=== PATIENT | male | born 1950 | race Caucasian/White ===

== ENCOUNTER 2016-07-27 08:09 | Emergency (ER) | payer OTHER ==
[~2016-07-27] VITALS: Ht 170.2 cm; Wt 90.0 kg
[2016-07-27 08:13] VITALS: BP 157/80; PULSE 111; RESP 16; TEMP 98.3; O2SAT 96
[2016-07-27] MEDS ORDERED: LIPI40TA PO (08:31)
[2016-07-27] MEDS ORDERED: METF1000 PO (08:31)
[2016-07-27] MEDS ORDERED: MELO7.5T4 PO (08:31)
--- NOTE | 2016-07-27 08:34 | PD ---
HPI Chief Complaint: Pain: Acute or Chronic Time Seen by Provider: 08:19 Travel History International Travel<30 days: No Contact w/Intl Traveler<30days: No Traveled to known affect area: No History of Present Illness HPI 65-year-old man who presents to the emergency department complaining of left hip pain. First dose several days ago. He started to experience popping and clicking. [place] He started having more catching in the hip and progressive worsening pain. He's never really had trouble with the hip before. States the pain is worse when he bends over or rises from a seated position. It is a little bit improved with standing. Denies any pain anywhere else. There is no radiation of the pain outside of the hip. He localizes pain to the lateral hip. History Past Medical History Narrative Medical Diabetes Hyperlipidemia Tetanus Vaccination: Unknown Social History Alcohol Use: Yes (occ) Tobacco Use: No Allergies-Medications (Allergen,Severity, Reaction): Coded Allergies: No Known Allergies (Unverified , 07/27/16) Reported Meds & Prescriptions Reported Meds & Active Scripts Active Reported Meloxicam 7.5 Mg Tab 7.5 Mg PO DAILY Metformin (Metformin HCl) 1,000 Mg Tab 1,000 Mg PO BIDPC With meals Lipitor (Atorvastatin Calcium) 40 Mg Tab 40 Mg PO HS Review of Systems Except as stated in HPI: all other systems reviewed are Neg Physical Exam Narrative GENERAL: Well-appearing 65-year-old man, no acute distress. SKIN: Warm and dry. CARDIOVASCULAR: Warm and well perfused. RESPIRATORY: Normal rate and effort. MUSCULOSKELETAL: Focused examination of the left hip reveals grossly normal appearance. There is no pain with passive internal or external rotation of the hip. With passive flexion of the hip he gets some pain and pinching in the hip. Is worse with active range of motion of the hip. There is no limitation in range of motion. Distally knee exam is unremarkable. NEUROLOGICAL: Awake and alert. No gross deficits. Data Data Last Documented VS Vital Signs Date Time Temp Pulse Resp B/P Pulse Ox O2 Delivery O2 Flow Rate FiO2 07/27/16 08:13 98.3 111 16 157/80 96 Orders Hip, Uni(Ap&Lat) W Ap Pelvis (07/27/16 ) MDM Medical Decision Making Medical Screen Exam Complete: Yes Emergency Medical Condition: Yes Interpretation(s) Left hip x-ray: Mild osteoarthritis. Differential Diagnosis Avascular necrosis, osteoarthritis, foreign body, other Narrative Course Medical decision making INITIAL: 65-year-old man who presents to the emergency department with left hip pain. Symptoms seem to be intrinsic to the hip itself although this is not clear. He has an appointment with Dr. Levin next week. We'll check x-ray, rule out avascular necrosis, pathologic fracture. Patient is on meloxicam. Recommend outpatient follow-up. Diagnosis Primary Impression: Left hip pain Additional Instructions: Continue meloxicam as prescribed. Use Lortab in addition as needed for severe pain. Continue normal activities as tolerated. Follow-up with Dr. Levin as planned. Return to the emergency department for any new or worsening symptoms. Med/Other Pt SpecificInfo: Prescription(s) given Scripts Hydrocodone-Acetaminophen (Lortab)5-325 Mg Tab1-2 Tab PO Q6H PRN (PAIN) #20 TAB Prov:Ronnie Soler MD 07/27/16 Disposition: 01 DISCHARGE HOME Condition: Stable Ronnie Soler MD Jul 27, 2016 08:34
--- NOTE | 2016-07-27 09:18 | RADHPO ---
EXAM DATE/TIME: 07/27/2016 08:51 [facility] COMPARISON: No previous studies available for comparison. INDICATIONS : Left hip catching, decreased range of motion, clicking. MEDICAL HISTORY : Hypercholesterolemia. Diabetic. SURGICAL HISTORY : Bilateral shoulders. ENCOUNTER: Initial ACUITY: 3 days PAIN SCORE: 7/10 LOCATION: Left hip FINDINGS: There is mild osteoarthritis of both hips without fracture or dislocation. Normal bone density. CONCLUSION: Mild osteoarthritis. Yony Schultz MD on July 27, 2016 at 9:16 Board Certified Radiologist. This report was verified electronically.
[2016-07-27] MEDS ORDERED: HYDR-3533 PO ×2 (09:31→09:32)
== END 2016-07-27 09:43 | disposition home or self-care (01) ==
LOC: PHED 08:09
DX: M25.552 Pain in left hip (principal); E11.9 Type 2 diabetes mellitus without complications; E78.5 Hyperlipidemia, unspecified
CPT/HCPCS: 73502; 99283

== ENCOUNTER 2016-07-30 12:49 | Emergency (ER) | payer OTHER ==
[~2016-07-30] VITALS: Ht 170.2 cm; Wt 89.3 kg
[~2016-07-30 12:49] MED LIST: HYDR-3533 PO; LIPI40TA PO; MELO7.5T4 PO; METF1000 PO
[2016-07-30 13:05] VITALS: BP 143/76; PULSE 98; RESP 16; TEMP 98.1; O2SAT 96
--- NOTE | 2016-07-30 13:45 | PD ---
HPI Chief Complaint: Pain: Acute or Chronic Time Seen by Provider: 13:44 Travel History International Travel<30 days: No Contact w/Intl Traveler<30days: No Traveled to known affect area: No History of Present Illness HPI 55-year-old male presents to the ED for evaluation one-week history of left hip pain. Patient can recall no acute injury or overuse. He states that the pain is "hitching" and intermittent. He denies numbness, tingling, weakness, limitations to range of motion of the hip. He was seen on 07/27. X-ray revealed mild osteoarthritis. He endorses compliance with the medications prescribed at the time with no improvement of symptoms. He has follow-up with Dr. Levin this week. [facility] Past Medical History Hx Anticoagulant Therapy: No High Cholesterol: Yes Diabetes: Yes (Type 2 ) Patient Takes Glucophage: Yes Diminished Hearing: No Respiratory: No Influenza Vaccination: No Social History Alcohol Use: Yes (occ) Tobacco Use: No (quit years ago) Substance Use: No Allergies-Medications (Allergen,Severity, Reaction): Coded Allergies: No Known Allergies (Unverified , 07/27/16) Reported Meds & Prescriptions Reported Meds & Active Scripts Active Flexeril (Cyclobenzaprine HCl) 10 Mg Tab 10 Mg PO TID Lortab (Hydrocodone-Acetaminophen) 5-325 Mg Tab 1-2 Tab PO Q6H PRN Reported Meloxicam 7.5 Mg Tab 7.5 Mg PO DAILY Metformin (Metformin HCl) 1,000 Mg Tab 1,000 Mg PO BIDPC With meals Lipitor (Atorvastatin Calcium) 40 Mg Tab 40 Mg PO HS Review of Systems Except as stated in HPI: all other systems reviewed are Neg Physical Exam Narrative GENERAL: Well-nourished, well-developed white male in no acute distress.. SKIN: Focused skin assessment warm/dry. HEAD: Normocephalic. EYES: No scleral icterus. No injection or drainage. NECK: Supple, trachea midline. No JVD or lymphadenopathy. CARDIOVASCULAR: Regular rate and rhythm without murmurs, gallops, or rubs. RESPIRATORY: Breath sounds equal bilaterally. No accessory muscle use. GASTROINTESTINAL: Abdomen soft, non-tender, nondistended. MUSCULOSKELETAL: No cyanosis, or edema. Patient is noted to walk with a slightly limping gait. FOCUSED LEFT LOWER EXTREMITY EXAM: 2+ DP pulse. Tender to palpation of the anterolateral aspect of the hip. 5/5 strength of dorsiflexion, plantar flexion , hip and knee flexion. Flexion with internal and external rotation elicits pain. Neurovascularly intact. BACK: Nontender without obvious deformity. No CVA tenderness. Data Data Last Documented VS Vital Signs Date Time Temp Pulse Resp B/P Pulse Ox O2 Delivery O2 Flow Rate FiO2 07/30/16 13:05 98.1 98 16 143/76 96 MDM Medical Decision Making Medical Screen Exam Complete: Yes Emergency Medical Condition: Yes Differential Diagnosis Osteoarthritis versus trochanteric bursitis versus iliotibial band syndrome versus other Narrative Course 55-year-old male presents to the ED for evaluation one-week history of left hip pain. Patient can recall no acute injury or overuse. He states that the pain is "hitching" and intermittent. He denies numbness, tingling, weakness, limitations to range of motion of the hip. He was seen on 07/27. X-ray revealed mild osteoarthritis. He endorses compliance with the medications prescribed at the time with no improvement of symptoms. He has follow-up with Dr. Levin this week. Vitals reviewed. Physical exam reveals a nontoxic-appearing white male in no acute distress. Patient is admitted to walk with a slight limping gait. There is tenderness of the anterolateral aspect of the hip and pain elicited with flexion and internal and external rotation. I do not feel new x- rays are warranted at this time. Patient was prescribed a short course of pain medications, muscle relaxants and anti-inflammatories. He is instructed to return to normal, gentle activity as tolerated, use a cane for ambulation if needed and follow up with Dr. Levin as planned this week. He indicated understanding of the instructions and is agreeable to the care plan. He is stable and discharged home. Diagnosis Primary Impression: Left hip pain Referrals: Aaron Bravo MD Patient Instructions: General Instructions, Hip Bursitis (ED) Additional Instructions: Rest, hydrate. Return to normal, gentle activity as tolerated. Take medications as prescribed. Do not drive while taking narcotic pain medications or muscle relaxants. Follow-up with Dr. Levin as discussed. Return to the ED for any urgent or emergent medical condition. Med/Other Pt SpecificInfo: Prescription(s) given Scripts Cyclobenzaprine (Flexeril)10 Mg Tab10 Mg PO TID #15 TAB Ref 0 Prov:Suyapa Dolan MD 07/30/16 Hydrocodone-Acetaminophen (Lortab)5-325 Mg Tab1-2 Tab PO Q6H PRN (PAIN) #20 TAB Prov:Suyapa Dolan MD 07/30/16 Disposition: 01 DISCHARGE HOME Condition: Stable Gia Galaviz Jul 30, 2016 13:44
[2016-07-30] MEDS ORDERED: HYDR-3533 PO (14:04)
[2016-07-30] MEDS ORDERED: CYCL1TAB29 PO (14:04)
== END 2016-07-30 14:28 | disposition home or self-care (01) ==
LOC: PHEFT 12:49
DX: M25.552 Pain in left hip (principal); E11.9 Type 2 diabetes mellitus without complications; E78.00 Pure hypercholesterolemia, unspecified
CPT/HCPCS: 99283